=== PATIENT | female | born 1940 | race Caucasian/White ===

== ENCOUNTER 2017-10-20 17:49 | Observation (INO) | payer MEDICARE ==
[~2017-10-20 17:49] MED LIST: LEVO137T24 PO; PANT40TA25 PO; POTA15TA6 PO; VALS1TAB79 PO
[2017-10-20 18:19] LABS: EOSINOPHILS % (AUTO) 1.2 % (0.0-8.0); LYMPHOCYTES % (AUTO) 44.7 % (21.0-51.0); MEAN CORPUSCULAR HEMOGLOBIN 29.9 pg (27.0-33.0); MEAN CORPUSCULAR HGB CONC 34.4 g/dL (32.0-36.0); MEAN CORPUSCULAR VOLUME 87.1 fL (79-99); NEUTROPHILS % (AUTO) 45.1 % (40.0-77.0); PLATELET COUNT (AUTO) 226 K/uL (130-400); RED CELL DISTRIBUTION WIDTH 13.7 % (11.0-15.5); WHITE BLOOD COUNT (AUTO) 11.6 K/uL (4.8-10.8)
[2017-10-20 18:25] LABS: APPEARANCE,URINE Clear (CLEAR); BILIRUBIN,URINE Negative (NEGATIVE); COLOR,URINE Yellow (YELLOW); GLUCOSE, URINE (UA) Negative (NEGATIVE); KETONES,URINE Negative (NEGATIVE); LEUKOCYTE ESTERASE ,URINE Small (NEGATIVE); NITRATE,URINE Negative (NEGATIVE); OCCULT BLOOD,URINE Nonhemolyzed Trace (NEGATIVE); PH,URINE 7.5 (5.0-8.0); PROTEIN,URINE Negative (NEGATIVE); UROBILINOGEN,URINE 0.2 mg/dL (0.2-1.0)
[2017-10-20 18:30] LABS: CREATININE 1.4 mg/dL (0.5-1.5); POTASSIUM 4.1 mmol/L (3.5-5.1)
[2017-10-20 18:32] LABS: ALBUMIN 4.2 g/dL (3.5-5.0); BILIRUBIN,TOTAL 0.6 mg/dL (0.2-1.0); TOTAL PROTEIN, SERUM 7.5 g/dL (6.0-8.3)
[2017-10-20 18:38] LABS: BACTERIA,URINE Rare /HPF (None Seen); SQUAMOUS EPITHELIAL CELL,UR Rare /LPF (0-2)
[2017-10-20] MEDS ORDERED: ONDANSETRON HCL 4 MG/2 ML VIAL ONE (19:08)
[2017-10-20] MEDS ORDERED: MORPHINE SULFATE 4 MG/1ML SYG ONE (19:09)
[2017-10-20] MEDS ORDERED: TAMSULOSIN HCL 0.4 MG CAP.ER.24H ONE (19:24)
[2017-10-20] MEDS ORDERED: 1/2 NORMAL SALINE 1,000 ML IV SCH (21:45)
[2017-10-20] MEDS ORDERED: MORPHINE-NS 50 MG/50 ML 50 ML IV PRN (21:45)
[2017-10-20] MEDS ORDERED: NALOXONE HCL 0.4 MG/1 ML ML IVP PRN (21:45)
[2017-10-20] MEDS ORDERED: MORPHINE-NS 50 MG/50 ML 50 ML IV ONE (22:19)
[2017-10-20] MEDS ORDERED: MORPHINE SULFATE 2 MG/ML 1ML SYG ONE (23:26)
[2017-10-20] MEDS ORDERED: 1/2 NORMAL SALINE 1,000 ML IV ONE (23:54)
[2017-10-21] MEDS ORDERED: ONDANSETRON HCL 4 MG/2 ML VIAL ONE ×2 (05:07→12:07)
[2017-10-21 05:26] LABS: BASOPHILS % (AUTO) 0.6 % (0.0-5.0); EOSINOPHILS % (AUTO) 0.4 % (0.0-8.0); HEMATOCRIT 35.8 % (36-48); LYMPHOCYTES % (AUTO) 35.3 % (21.0-51.0); MEAN CORPUSCULAR HEMOGLOBIN 29.9 pg (27.0-33.0); MEAN CORPUSCULAR HGB CONC 34.5 g/dL (32.0-36.0); MEAN CORPUSCULAR VOLUME 86.8 fL (79-99); MONOCYTES % (AUTO) 7.5 % (3.0-13.0); NEUTROPHILS % (AUTO) 56.2 % (40.0-77.0); PLATELET COUNT (AUTO) 194 K/uL (130-400); RED BLOOD CELL COUNT(AUTO) 4.13 MIL/uL (4.00-5.50); RED CELL DISTRIBUTION WIDTH 13.7 % (11.0-15.5); WHITE BLOOD COUNT (AUTO) 9.6 K/uL (4.8-10.8)
[2017-10-21 05:30] LABS: CREATININE 1.4 mg/dL (0.5-1.5); POTASSIUM 3.6 mmol/L (3.5-5.1)
[2017-10-21] MEDS ORDERED: 1/2 NORMAL SALINE 1,000 ML IV SCH (08:30)
[2017-10-21 11:20] VITALS: BP 113/44
[2017-10-21] MEDS ORDERED: ONDANSETRON HCL 4 MG/2 ML VIAL IVP PRN ×2 (12:15→14:15)
[2017-10-21 13:59] VITALS: BP 117/56
[2017-10-21 16:00] VITALS: BP 127/53
== END 2017-10-21 17:30 | disposition home or self-care (01) ==
LOC: EDH 17:49 → EDHIP 21:10 → INTOOBSV 21:10 → 3DH 10-21 13:59
PROVIDERS: ADMIT Internal Medicine; ATTEND Internal Medicine
DX: N23 Unspecified renal colic (principal); I10 Essential (primary) hypertension; K57.90 Diverticulosis of intestine, part unspecified, without perforation or abscess without bleeding; J44.9 Chronic obstructive pulmonary disease, unspecified; E03.9 Hypothyroidism, unspecified; Z87.442 Personal history of urinary calculi; Z90.49 Acquired absence of other specified parts of digestive tract
CPT/HCPCS: 36415 ×2; 74176; 80048; 80053; 81001; 85025 ×2; 96361; 96374; 96376; 99285; G0378 ×20; J2270 ×2; J2405 ×4

== ENCOUNTER 2018-03-21 11:19 | Inpatient (IN) | payer MEDICARE ==
[~2018-03-21] VITALS: Ht 165.1 cm; Wt 88.7 kg
[2018-03-21] MEDS ORDERED: IOPAMIDOL-370 75 ML VIAL IV ONE (11:46)
[2018-03-21] MEDS ORDERED: DIATR MEGLU/DIATRIZOATE SODIUM 30 ML BOTTLE ONE ×2 (11:46→12:00)
[2018-03-21] MEDS ORDERED: METRONIDAZOLE 500MG/100ML BAG 100 ML ONE (11:50)
[2018-03-21] MEDS ORDERED: ZOSYN 3.375GM+NS 50ML 50 ML IV ONE ×2 (11:50→13:12)
[2018-03-21] MEDS ORDERED: 1/2 NORMAL SALINE 1,000 ML IV ONE (11:51)
[2018-03-21 12:21] LABS: BASOPHILS % (AUTO) 1.1 % (0.0-5.0); HEMATOCRIT 45.3 % (36-48); LYMPHOCYTES % (AUTO) 32.1 % (21.0-51.0); MEAN CORPUSCULAR HEMOGLOBIN 29.5 pg (27.0-33.0); MEAN CORPUSCULAR HGB CONC 33.8 g/dL (32.0-36.0); MEAN CORPUSCULAR VOLUME 87.4 fL (79-99); NEUTROPHILS % (AUTO) 58.8 % (40.0-77.0); NUCLEATED RED BLOOD CELLS 0.1 % (0.0-0.19); PLATELET COUNT (AUTO) 236 K/uL (130-400); RED BLOOD CELL COUNT(AUTO) 5.18 MIL/uL (4.00-5.50); RED CELL DISTRIBUTION WIDTH 13.4 % (11.0-15.5); WHITE BLOOD COUNT (AUTO) 11.7 K/uL (4.8-10.8)
[2018-03-21 12:31] LABS: CREATININE 1.1 mg/dL (0.5-1.5); POTASSIUM 4.6 mmol/L (3.5-5.1)
[2018-03-21 12:36] LABS: ALBUMIN 4.5 g/dL (3.5-5.0); BILIRUBIN,DIRECT 0.1 mg/dL (0.0-0.3); BILIRUBIN,TOTAL 0.6 mg/dL (0.2-1.0); TOTAL PROTEIN, SERUM 8.3 g/dL (6.0-8.3)
[2018-03-21] MEDS ORDERED: METRONIDAZOLE 500MG/100ML BAG 100 ML IVPB SCH (18:00)
[2018-03-21 18:49] VITALS: BP 139/56
[2018-03-21 19:52] VITALS: BP 151/89
[2018-03-21] MEDS ORDERED: ZOSYN 3.375GM+NS 50ML 50 ML IV SCH (20:00)
[2018-03-21] MEDS: 1/2 NORMAL SALINE 1,000 ML IV SCH (22:05)
[2018-03-21] MEDS ORDERED: ONDANSETRON ODT 4 MG TAB SL PRN (22:30)
[2018-03-21] MEDS ORDERED: ACETAMINOPHEN-CODEINE 300/30MG TAB ONE (22:30)
[2018-03-21] MEDS ORDERED: ACETAMINOPHEN-CODEINE 300/30MG TAB PO PRN (22:30)
[2018-03-21 23:28] VITALS: BP 123/55
[2018-03-22 03:24] VITALS: BP 124/49
[2018-03-22] MEDS ORDERED: METRONIDAZOLE 500MG/100ML BAG 100 ML ONE (05:07)
[2018-03-22 05:47] LABS: HEMATOCRIT 36.7 % (36-48); MEAN CORPUSCULAR HGB CONC 34.8 g/dL (32.0-36.0); MEAN CORPUSCULAR VOLUME 86.3 fL (79-99); PLATELET COUNT (AUTO) 192 K/uL (130-400); RED BLOOD CELL COUNT(AUTO) 4.25 MIL/uL (4.00-5.50); RED CELL DISTRIBUTION WIDTH 13.6 % (11.0-15.5); WHITE BLOOD COUNT (AUTO) 8.2 K/uL (4.8-10.8)
[2018-03-22] MEDS: ZOSYN 3.375GM+NS 50ML 50 ML IV SCH ×3 (06:02→22:32)
[2018-03-22 06:05] LABS: ALBUMIN 3.2 g/dL (3.5-5.0); BILIRUBIN,DIRECT 0.2 mg/dL (0.0-0.3); BILIRUBIN,TOTAL 0.9 mg/dL (0.2-1.0); CREATININE 1.1 mg/dL (0.5-1.5); POTASSIUM 3.7 mmol/L (3.5-5.1)
[2018-03-22] MEDS ORDERED: NAPR-1023 PO (08:13)
[2018-03-22 08:16] VITALS: BP 132/56
[2018-03-22] MEDS: ENOXAPARIN SODIUM 40 MG/0.4 ML SYRINGE SQ SCH (09:22)
[2018-03-22 11:36] VITALS: BP 135/71
[2018-03-22] MEDS: METRONIDAZOLE 500MG/100ML BAG 100 ML IVPB SCH ×2 (15:42→21:28)
[2018-03-22 16:00] VITALS: BP 140/54
[2018-03-22] MEDS: 1/2 NORMAL SALINE 1,000 ML IV SCH (20:13)
[2018-03-22 21:04] VITALS: BP 146/76
[2018-03-22] MEDS ORDERED: METRONIDAZOLE 500MG/100ML BAG 100 ML IVPB SCH (21:05)
[2018-03-23 00:24] VITALS: BP 134/81
[2018-03-23 04:37] VITALS: BP 131/51
[2018-03-23 05:18] LABS: HEMATOCRIT 35.8 % (36-48); MEAN CORPUSCULAR HEMOGLOBIN 30.8 pg (27.0-33.0); MEAN CORPUSCULAR HGB CONC 35.6 g/dL (32.0-36.0); MEAN CORPUSCULAR VOLUME 86.3 fL (79-99); NUCLEATED RED BLOOD CELLS 0.1 % (0.0-0.19); PLATELET COUNT (AUTO) 196 K/uL (130-400); RED BLOOD CELL COUNT(AUTO) 4.15 MIL/uL (4.00-5.50); RED CELL DISTRIBUTION WIDTH 13.4 % (11.0-15.5)
[2018-03-23] MEDS: METRONIDAZOLE 500MG/100ML BAG 100 ML IVPB SCH ×3 (05:23→21:52)
[2018-03-23] MEDS: 1/2 NORMAL SALINE 1,000 ML IV SCH ×2 (05:23→13:42)
[2018-03-23 05:34] LABS: CREATININE 1.1 mg/dL (0.5-1.5); POTASSIUM 3.4 mmol/L (3.5-5.1)
[2018-03-23] MEDS: ZOSYN 3.375GM+NS 50ML 50 ML IV SCH ×3 (06:14→23:42)
[2018-03-23 08:00] VITALS: BP 161/73
[2018-03-23] MEDS ORDERED: LIDOCAINE HCL-MPF 1% 2ML VIAL IVP PRN (08:15)
[2018-03-23] MEDS ORDERED: POTASSIUM CHLORIDE 10% ELIXIR 20 MEQ/15 ML UDCUP PO PRN (08:15)
[2018-03-23] MEDS ORDERED: POTASSIUM CHLORIDE 20MEQ/100ML 100 ML IV PRN (08:15)
[2018-03-23] MEDS: ENOXAPARIN SODIUM 40 MG/0.4 ML SYRINGE SQ SCH (08:17)
[2018-03-23] MEDS: POTASSIUM CHLORIDE 20 MEQ ERTAB PO PRN ×2 (08:27→10:47)
[2018-03-23 11:00] VITALS: BP 138/52
[2018-03-23 16:00] VITALS: BP 147/57
[2018-03-23 20:55] VITALS: BP 154/80
[2018-03-24 00:29] VITALS: BP 131/66
[2018-03-24 04:30] VITALS: BP 132/64
[2018-03-24 05:21] LABS: HEMATOCRIT 36.3 % (36-48); MEAN CORPUSCULAR HEMOGLOBIN 29.9 pg (27.0-33.0); MEAN CORPUSCULAR HGB CONC 34.6 g/dL (32.0-36.0); MEAN CORPUSCULAR VOLUME 86.5 fL (79-99); PLATELET COUNT (AUTO) 187 K/uL (130-400); RED BLOOD CELL COUNT(AUTO) 4.19 MIL/uL (4.00-5.50); WHITE BLOOD COUNT (AUTO) 7.4 K/uL (4.8-10.8)
[2018-03-24 05:33] LABS: CREATININE 1.1 mg/dL (0.5-1.5); POTASSIUM 3.7 mmol/L (3.5-5.1)
[2018-03-24] MEDS: 1/2 NORMAL SALINE 1,000 ML IV SCH (05:54)
[2018-03-24] MEDS: METRONIDAZOLE 500MG/100ML BAG 100 ML IVPB SCH (05:54)
[2018-03-24 07:00] VITALS: BP 140/63
[2018-03-24] MEDS: ZOSYN 3.375GM+NS 50ML 50 ML IV SCH (10:11)
[2018-03-24] MEDS: ENOXAPARIN SODIUM 40 MG/0.4 ML SYRINGE SQ SCH (10:14)
[2018-03-24 11:00] VITALS: BP 147/105
[2018-03-24 15:00] VITALS: BP 148/82
[2018-03-24 16:00] VITALS: BP 166/68
== END 2018-03-24 15:25 | disposition home or self-care (01) | DRG 392 ==
LOC: EDH 11:19 → OBSVTOIN 11:20 → EDHIP 11:20 → 3DH 18:30
PROVIDERS: ADMIT Internal Medicine; ATTEND Internal Medicine
DX: K57.32 Diverticulitis of large intestine without perforation or abscess without bleeding (principal); N20.1 Calculus of ureter; E03.9 Hypothyroidism, unspecified; I12.9 Hypertensive chronic kidney disease with stage 1 through stage 4 chronic kidney disease, or unspecified chronic kidney disease; J44.9 Chronic obstructive pulmonary disease, unspecified; K21.9 Gastro-esophageal reflux disease without esophagitis; N18.9 Chronic kidney disease, unspecified; Z90.710 Acquired absence of both cervix and uterus; Z87.442 Personal history of urinary calculi; Z90.49 Acquired absence of other specified parts of digestive tract
CPT/HCPCS: 36415; 74178; 80048; 80053; 80076; 82150; 82248; 85025; 85027; J1650; J2543; J3490; Q9963; Q9967

== ENCOUNTER 2019-05-12 12:17 | Observation (INO) | payer MEDICARE ==
[~2019-05-12] VITALS: Ht 165.1 cm; Wt 86.8 kg
[~2019-05-12 12:17] MED LIST changes: +NAPR-1023 PO
[2019-05-12 12:57] LABS: BASOPHILS % (AUTO) 0.5 % (0.0-5.0); EOSINOPHILS % (AUTO) 0.8 % (0.0-8.0); HEMATOCRIT 41.4 % (36-48); LYMPHOCYTES % (AUTO) 33.7 % (21.0-51.0); MEAN CORPUSCULAR HGB CONC 33.4 g/dL (32.0-36.0); MEAN CORPUSCULAR VOLUME 89.9 fL (79-99); MONOCYTES % (AUTO) 8.4 % (3.0-13.0); NEUTROPHILS % (AUTO) 56.6 % (40.0-77.0); NUCLEATED RED BLOOD CELLS 0.1 % (0.0-0.19); PLATELET COUNT (AUTO) 203 K/uL (130-400); RED BLOOD CELL COUNT(AUTO) 4.61 MIL/uL (4.00-5.50); RED CELL DISTRIBUTION WIDTH 13.8 % (11.0-15.5); WHITE BLOOD COUNT (AUTO) 10.8 K/uL (4.8-10.8)
[2019-05-12 13:09] LABS: INR 0.92 (0.85-1.15); PARTIAL THROMBOPLASTIN TIME 31.7 SEC (26.3-35.5); PROTHROMBIN TIME 9.7 SEC (9.6-11.6)
[2019-05-12 13:10] LABS: APPEARANCE,URINE Clear (CLEAR); BILIRUBIN,URINE Negative (NEGATIVE); COLOR,URINE Yellow (YELLOW); GLUCOSE, URINE (UA) Negative (NEGATIVE); KETONES,URINE Negative (NEGATIVE); LEUKOCYTE ESTERASE ,URINE Small (NEGATIVE); NITRATE,URINE Negative (NEGATIVE); OCCULT BLOOD,URINE Small (NEGATIVE); PROTEIN,URINE Negative (NEGATIVE); UROBILINOGEN,URINE 0.2 mg/dL (0.2-1.0)
[2019-05-12 13:15] LABS: CREATININE 0.9 mg/dL (0.5-1.5); POTASSIUM 4.4 mmol/L (3.5-5.1)
[2019-05-12 13:16] LABS: BACTERIA,URINE Rare /HPF (None Seen); RBC,URINE 0-1 /HPF (0-1); WBC,URINE 0-1 /HPF (0-1)
[2019-05-12 13:17] LABS: SQUAMOUS EPITHELIAL CELL,UR Rare /HPF (0-2)
[2019-05-12 13:20] LABS: BILIRUBIN,DIRECT 0.1 mg/dL (0.0-0.3); BILIRUBIN,TOTAL 0.8 mg/dL (0.2-1.0); TOTAL PROTEIN, SERUM 7.9 g/dL (6.0-8.3)
[2019-05-12] MEDS ORDERED: IOHEXOL 350 MG/ML 100ML INFUS..BTL IV ONE (13:36)
[2019-05-12] MEDS ORDERED: CEFTRIAXONE SODIUM 1 GM ONE (13:38)
[2019-05-12] MEDS ORDERED: ONDANSETRON HCL 4 MG/2 ML VIAL ONE (13:38)
[2019-05-12] MEDS ORDERED: MORPHINE SULFATE 4 MG/1ML SYG ONE (13:39)
[2019-05-12] MEDS ORDERED: SODIUM CHLORIDE 0.9% 100 ML IV ONE ×2 (13:40→13:41)
[2019-05-12] MEDS ORDERED: SODIUM CHLORIDE 0.9% 1000ML 1,000 ML IV ONE (13:40)
[2019-05-12] MEDS ORDERED: MORPHINE SULFATE 4 MG/1ML SYG IVP PRN (15:30)
[2019-05-12 16:05] VITALS: BP 114/43
[2019-05-12] MEDS ORDERED: TELM80TA10 PO (17:12)
[2019-05-12] MEDS ORDERED: VIT1CAPS47 PO (17:12)
[2019-05-12] MEDS: METRONIDAZOLE 500MG/100ML BAG 100 ML IVPB SCH (17:15)
[2019-05-12 19:10] VITALS: BP 125/67
[2019-05-12] MEDS: MORPHINE SULFATE 4 MG/1ML SYG IVP PRN (19:48)
[2019-05-13 00:06] VITALS: BP 136/54
[2019-05-13] MEDS: METRONIDAZOLE 500MG/100ML BAG 100 ML IVPB SCH ×3 (00:20→17:31)
[2019-05-13] MEDS: MORPHINE SULFATE 4 MG/1ML SYG IVP PRN (01:34)
[2019-05-13 04:16] VITALS: BP 108/56
[2019-05-13 08:00] VITALS: BP 120/45
[2019-05-13] MEDS ORDERED: CEFTRIAXONE SODIUM 1 GM IVP SCH ×2 (09:00)
[2019-05-13 11:00] VITALS: BP 116/51
[2019-05-13 16:00] VITALS: BP 121/43
[2019-05-13 19:10] VITALS: BP 59/63
[2019-05-14 00:10] VITALS: BP 136/68
[2019-05-14] MEDS: METRONIDAZOLE 500MG/100ML BAG 100 ML IVPB SCH (02:07)
[2019-05-14 04:02] VITALS: BP 126/65
[2019-05-14 05:18] LABS: HEMATOCRIT 36.7 % (36-48); MEAN CORPUSCULAR HEMOGLOBIN 30.4 pg (27.0-33.0); MEAN CORPUSCULAR HGB CONC 33.9 g/dL (32.0-36.0); MEAN CORPUSCULAR VOLUME 89.6 fL (79-99); PLATELET COUNT (AUTO) 177 K/uL (130-400); RED CELL DISTRIBUTION WIDTH 13.5 % (11.0-15.5); WHITE BLOOD COUNT (AUTO) 8.3 K/uL (4.8-10.8)
[2019-05-14 05:31] LABS: POTASSIUM 3.4 mmol/L (3.5-5.1)
[2019-05-14 08:00] VITALS: BP 151/65
== END 2019-05-14 09:15 | disposition home or self-care (01) ==
LOC: EDH 12:17 → EDHIP 15:05 → 3AH 16:08
PROVIDERS: ADMIT Internal Medicine; ATTEND Internal Medicine
DX: K57.92 Diverticulitis of intestine, part unspecified, without perforation or abscess without bleeding (principal); I10 Essential (primary) hypertension; J44.9 Chronic obstructive pulmonary disease, unspecified; E03.9 Hypothyroidism, unspecified; K21.9 Gastro-esophageal reflux disease without esophagitis; Z90.710 Acquired absence of both cervix and uterus; Z90.49 Acquired absence of other specified parts of digestive tract; Z87.442 Personal history of urinary calculi
CPT/HCPCS: 36415 ×2; 74177; 80048 ×2; 80076; 81001; 82550; 83690; 84484; 85025; 85027; 85610; 85730; 93005; 96365; 96366 ×2; 96375; 96376; 99284; G0378 ×42; J0696; J2270 ×3; J2405; J3490 ×5; J7030; Q9967

== ENCOUNTER 2021-02-26 10:12 | Inpatient (IN) | payer MEDICARE ==
[~2021-02-26] VITALS: Ht 165.1 cm; Wt 83.9 kg
[~2021-02-26 10:12] MED LIST changes: -LEVO137T24 PO; +METO50TA18 PO; -NAPR-1023 PO; -PANT40TA25 PO; +PANT40TA54 PO; +RIVA20TA PO; -VALS1TAB79 PO; +VIT1CAPS47 PO
[2021-02-26 11:00] LABS: BASOPHILS % (AUTO) 0.4 % (0.0-5.0); EOSINOPHILS % (AUTO) 1.8 % (0.0-8.0); HEMATOCRIT 40.2 % (36-48); MEAN CORPUSCULAR HEMOGLOBIN 29.5 pg (27.0-33.0); MEAN CORPUSCULAR HGB CONC 32.3 g/dL (32.0-36.0); MEAN CORPUSCULAR VOLUME 91.2 fL (79-99); MONOCYTES % (AUTO) 10.4 % (3.0-13.0); PLATELET COUNT (AUTO) 203 K/uL (130-400); RED BLOOD CELL COUNT(AUTO) 4.41 MIL/uL (4.00-5.50); WHITE BLOOD COUNT (AUTO) 10.4 K/uL (4.8-10.8)
[2021-02-26 11:22] LABS: ALBUMIN 3.4 g/dL (3.5-5.0); BILIRUBIN,DIRECT 0.1 mg/dL (0.0-0.3); BILIRUBIN,TOTAL 0.5 mg/dL (0.2-1.0); POTASSIUM 3.7 mmol/L (3.5-5.1); TOTAL PROTEIN, SERUM 6.8 g/dL (6.0-8.3)
[2021-02-26] MEDS ORDERED: METHYLPREDNISOLONE SOD SUCC 40MG/ML 1ML ONE (11:24)
[2021-02-26] MEDS ORDERED: MEROPENEM 500 MG VIAL ONE ×2 (11:24→22:32)
[2021-02-26] MEDS ORDERED: SODIUM CHLORIDE 0.9% 100 ML IV ONE ×2 (11:26→22:15)
[2021-02-26] MEDS ORDERED: POTASSIUM CHLORIDE 10% ELIXIR 20 MEQ/15 ML UDCUP PO PRN (13:30)
[2021-02-26] MEDS ORDERED: LIDOCAINE HCL-MPF 1% 2ML VIAL IJ PRN (13:30)
[2021-02-26] MEDS: DEXTROSE 5 %-0.45 % NACL 1,000 ML IV SCH (13:30)
[2021-02-26] MEDS ORDERED: ALBUTEROL SULFATE 0.083% 2.5 MG/3 ML INH IH PRN (13:30)
[2021-02-26] MEDS ORDERED: POTASSIUM CHLORIDE 20MEQ/100ML 100 ML IV PRN (13:30)
[2021-02-26] MEDS ORDERED: POTASSIUM CHLORIDE 20 MEQ ERTAB PO PRN (13:30)
[2021-02-26] MEDS ORDERED: DEXTROSE 5 %-0.45 % NACL 1,000 ML IV ONE (14:05)
[2021-02-26] MEDS: IPRATROPIUM/ALBUTEROL SULFATE 3 ML SOLUTION IH SCH ×2 (14:37→17:33)
[2021-02-26] MEDS: ACETYLCYSTEINE 20% 200MG/ML 4ML VIAL IH SCH (14:37)
[2021-02-26] MEDS: MEROPENEM 500 MG VIAL IVP SCH (15:00)
[2021-02-26] MEDS ORDERED: MEROPENEM 1 GM VIAL ONE (22:14)
[2021-02-26] MEDS ORDERED: METHYLPREDNISOLONE SOD SUCC 125MG/2ML VIAL ONE (22:14)
[2021-02-27] MEDS: IPRATROPIUM/ALBUTEROL SULFATE 3 ML SOLUTION IH SCH ×5 (01:13→22:52)
[2021-02-27] MEDS: ACETYLCYSTEINE 20% 200MG/ML 4ML VIAL IH SCH ×3 (01:13→22:52)
[2021-02-27] MEDS: PHARMACY COMMUNICATION MISC SCH ×9 (01:30→17:30)
[2021-02-27] MEDS: METHYLPREDNISOLONE SOD SUCC 125MG/2ML VIAL IVP SCH ×2 (01:30→15:23)
[2021-02-27 02:00] VITALS: BP 152/53
[2021-02-27] MEDS ORDERED: LEVO125 PO (02:35)
[2021-02-27] MEDS: MEROPENEM 500 MG VIAL IVP SCH ×2 (03:00→15:24)
[2021-02-27 04:00] VITALS: BP 119/53
[2021-02-27 05:34] LABS: HEMATOCRIT 34.8 % (36-48); MEAN CORPUSCULAR HEMOGLOBIN 30.2 pg (27.0-33.0); MEAN CORPUSCULAR VOLUME 91.3 fL (79-99); RED BLOOD CELL COUNT(AUTO) 3.81 MIL/uL (4.00-5.50); RED CELL DISTRIBUTION WIDTH 13.9 % (11.0-15.5); WHITE BLOOD COUNT (AUTO) 9.6 K/uL (4.8-10.8)
[2021-02-27 06:01] LABS: BILIRUBIN,DIRECT 0.1 mg/dL (0.0-0.3); BILIRUBIN,TOTAL 0.4 mg/dL (0.2-1.0); POTASSIUM 3.5 mmol/L (3.5-5.1); TOTAL PROTEIN, SERUM 6.1 g/dL (6.0-8.3)
[2021-02-27 08:00] VITALS: BP 129/54
[2021-02-27] MEDS: DEXTROSE 5 %-0.45 % NACL 1,000 ML IV SCH (09:30)
[2021-02-27] MEDS: ENOXAPARIN SODIUM 40 MG/0.4 ML SYRINGE SQ SCH (09:53)
[2021-02-27] MEDS: GUAIFENESIN-CODEINE 5 ML SYRUP PO PRN (09:53)
[2021-02-27 12:00] VITALS: BP 145/51
[2021-02-27 16:00] VITALS: BP 135/53
[2021-02-27 20:00] VITALS: BP 137/53
[2021-02-27] MEDS: POTASSIUM CITRATE 15 MEQ PO SCH (21:00)
[2021-02-27] MEDS: METOPROLOL TARTRATE 50 MG TAB PO SCH (21:02)
[2021-02-28] VITALS (8 sets, daily range): BP systolic 106–183; BP diastolic 44–84
[2021-02-28] MEDS: METHYLPREDNISOLONE SOD SUCC 125MG/2ML VIAL IVP SCH ×2 (01:56→13:15)
[2021-02-28] MEDS: MEROPENEM 500 MG VIAL IVP SCH ×2 (03:23→15:25)
[2021-02-28 04:33] LABS: HEMATOCRIT 34.8 % (36-48); MEAN CORPUSCULAR HEMOGLOBIN 28.9 pg (27.0-33.0); MEAN CORPUSCULAR HGB CONC 32.2 g/dL (32.0-36.0); MEAN CORPUSCULAR VOLUME 89.9 fL (79-99); RED BLOOD CELL COUNT(AUTO) 3.87 MIL/uL (4.00-5.50); RED CELL DISTRIBUTION WIDTH 14.4 % (11.0-15.5); WHITE BLOOD COUNT (AUTO) 14.2 K/uL (4.8-10.8)
[2021-02-28 04:45] LABS: ALBUMIN 2.8 g/dL (3.5-5.0); BILIRUBIN,TOTAL 0.3 mg/dL (0.2-1.0); POTASSIUM 3.8 mmol/L (3.5-5.1); TOTAL PROTEIN, SERUM 5.9 g/dL (6.0-8.3)
[2021-02-28] MEDS: ACETYLCYSTEINE 20% 200MG/ML 4ML VIAL IH SCH (06:09)
[2021-02-28] MEDS: IPRATROPIUM/ALBUTEROL SULFATE 3 ML SOLUTION IH SCH ×4 (06:10→23:27)
[2021-02-28] MEDS: DEXTROSE 5 %-0.45 % NACL 1,000 ML IV SCH ×2 (06:45→15:00)
[2021-02-28] MEDS: VITAMIN B COMPLEX 1 CAPSULE PO SCH (08:34)
[2021-02-28] MEDS: PANTOPRAZOLE SODIUM 40 MG TABLET.DR PO SCH (08:34)
[2021-02-28] MEDS: METOPROLOL TARTRATE 50 MG TAB PO SCH ×2 (08:34→22:21)
[2021-02-28] MEDS: LEVOTHYROXINE 125 MCG TABLET PO SCH (08:34)
[2021-02-28] MEDS: RIVAROXABAN 20 MG TABLET PO SCH (08:35)
[2021-02-28] MEDS: ENOXAPARIN SODIUM 40 MG/0.4 ML SYRINGE SQ SCH (08:35)
[2021-02-28] MEDS: POTASSIUM CITRATE 15 MEQ PO SCH ×2 (08:35→21:00)
[2021-02-28] MEDS: PHARMACY COMMUNICATION MISC SCH ×2 (21:30→23:30)
[2021-02-28] MEDS: ACETYLCYSTEINE 20% 200MG/ML 4ML VIAL PO SCH (22:21)
[2021-03-01] MEDS: PHARMACY COMMUNICATION MISC SCH ×11 (01:30→21:30)
[2021-03-01] MEDS: METHYLPREDNISOLONE SOD SUCC 125MG/2ML VIAL IVP SCH ×2 (02:17→14:41)
[2021-03-01] MEDS: MEROPENEM 500 MG VIAL IVP SCH ×2 (02:17→15:10)
[2021-03-01] MEDS: DEXTROSE 5 %-0.45 % NACL 1,000 ML IV SCH (03:48)
[2021-03-01] MEDS: METOPROLOL TARTRATE 50 MG TAB PO SCH ×2 (03:54→20:13)
[2021-03-01 04:30] VITALS: BP 174/62
[2021-03-01] MEDS: ACETYLCYSTEINE 20% 200MG/ML 4ML VIAL PO SCH (06:00)
[2021-03-01] MEDS: IPRATROPIUM/ALBUTEROL SULFATE 3 ML SOLUTION IH SCH ×4 (06:42→23:19)
[2021-03-01] MEDS ORDERED: CLONIDINE HCL 0.1 MG TABLET PO SCH (07:43)
[2021-03-01] MEDS ORDERED: ACETYLCYSTEINE 20% 200MG/ML 4ML VIAL ONE (08:31)
[2021-03-01] MEDS: VITAMIN B COMPLEX 1 CAPSULE PO SCH (08:50)
[2021-03-01] MEDS: RIVAROXABAN 20 MG TABLET PO SCH (08:50)
[2021-03-01] MEDS: LEVOTHYROXINE 125 MCG TABLET PO SCH (08:51)
[2021-03-01] MEDS: PANTOPRAZOLE SODIUM 40 MG TABLET.DR PO SCH (08:51)
[2021-03-01] MEDS: POTASSIUM CITRATE 15 MEQ PO SCH ×2 (08:51→20:19)
[2021-03-01 10:34] VITALS: BP 155/67
[2021-03-01 12:13] VITALS: BP 98/50
[2021-03-01 12:19] LABS: BASOPHILS % (AUTO) 0.2 % (0.0-5.0); EOSINOPHILS % (AUTO) 0.1 % (0.0-8.0); HEMATOCRIT 40.2 % (36-48); LYMPHOCYTES % (AUTO) 16.6 % (21.0-51.0); MEAN CORPUSCULAR HEMOGLOBIN 29.1 pg (27.0-33.0); MEAN CORPUSCULAR HGB CONC 32.1 g/dL (32.0-36.0); MEAN CORPUSCULAR VOLUME 90.7 fL (79-99); MONOCYTES % (AUTO) 4.2 % (3.0-13.0); NEUTROPHILS % (AUTO) 77.3 % (40.0-77.0); PLATELET COUNT (AUTO) 204 K/uL (130-400); RED BLOOD CELL COUNT(AUTO) 4.43 MIL/uL (4.00-5.50); RED CELL DISTRIBUTION WIDTH 14.2 % (11.0-15.5); WHITE BLOOD COUNT (AUTO) 14.8 K/uL (4.8-10.8)
[2021-03-01 12:29] LABS: POTASSIUM 3.5 mmol/L (3.5-5.1)
[2021-03-01] MEDS: ACETAMINOPHEN-CODEINE 300/30MG TAB PO PRN ×2 (14:41→23:39)
[2021-03-01 17:41] VITALS: BP 180/65
[2021-03-01] MEDS ORDERED: BACLOFEN 10 MG TABLET ONE (19:10)
[2021-03-01 20:00] VITALS: BP 147/62
[2021-03-01] MEDS: BACLOFEN 10 MG TABLET PO SCH (20:13)
[2021-03-01] MEDS: GUAIFENESIN-CODEINE 5 ML SYRUP PO PRN (20:14)
[2021-03-02] VITALS (8 sets, daily range): BP systolic 119–194; BP diastolic 59–88
[2021-03-02] MEDS: METHYLPREDNISOLONE SOD SUCC 125MG/2ML VIAL IVP SCH ×2 (01:56→13:30)
[2021-03-02] MEDS: MEROPENEM 500 MG VIAL IVP SCH ×2 (03:54→16:13)
[2021-03-02] MEDS: GUAIFENESIN-CODEINE 5 ML SYRUP PO PRN ×4 (03:57→21:39)
[2021-03-02] MEDS: DEXTROSE 5 %-0.45 % NACL 1,000 ML IV SCH (03:57)
[2021-03-02 05:31] LABS: CREATININE 1.1 mg/dL (0.5-1.5); MAGNESIUM 1.8 mg/dL (1.80-2.40); POTASSIUM 4.1 mmol/L (3.5-5.1)
[2021-03-02] MEDS: IPRATROPIUM/ALBUTEROL SULFATE 3 ML SOLUTION IH SCH ×4 (06:19→23:40)
[2021-03-02] MEDS: PANTOPRAZOLE SODIUM 40 MG TABLET.DR PO SCH (07:48)
[2021-03-02] MEDS: LEVOTHYROXINE 125 MCG TABLET PO SCH (07:48)
[2021-03-02] MEDS: METOPROLOL TARTRATE 50 MG TAB PO SCH ×2 (08:09→21:40)
[2021-03-02] MEDS ORDERED: AMLODIPINE BESYLATE 5 MG TAB PO SCH (08:15)
[2021-03-02] MEDS ORDERED: MAGNESIUM 2GM PREMIX 50ML 50 ML IV PRN (08:15)
[2021-03-02] MEDS: VITAMIN B COMPLEX 1 CAPSULE PO SCH (08:53)
[2021-03-02] MEDS: BACLOFEN 10 MG TABLET PO SCH ×2 (08:54→21:41)
[2021-03-02] MEDS: RIVAROXABAN 20 MG TABLET PO SCH (08:54)
[2021-03-02] MEDS: POTASSIUM CITRATE 15 MEQ PO SCH ×2 (09:00→21:00)
[2021-03-02] MEDS ORDERED: ACETAMINOPHEN-CODEINE 300/30MG TAB ONE (09:07)
[2021-03-02] MEDS: FLUCONAZOLE 100 MG TAB PO SCH (10:43)
[2021-03-02] MEDS: ACETAMINOPHEN-CODEINE 300/30MG TAB PO PRN ×2 (16:15→21:40)
[2021-03-03] VITALS (7 sets, daily range): BP systolic 149–185; BP diastolic 53–76
[2021-03-03] MEDS: METHYLPREDNISOLONE SOD SUCC 125MG/2ML VIAL IVP SCH (01:34)
[2021-03-03] MEDS: MEROPENEM 500 MG VIAL IVP SCH ×2 (03:49→14:38)
[2021-03-03 05:24] LABS: BASOPHILS % (AUTO) 0.4 % (0.0-5.0); EOSINOPHILS % (AUTO) 0.4 % (0.0-8.0); HEMATOCRIT 40.1 % (36-48); LYMPHOCYTES % (AUTO) 18.5 % (21.0-51.0); MEAN CORPUSCULAR HEMOGLOBIN 28.5 pg (27.0-33.0); MEAN CORPUSCULAR HGB CONC 32.2 g/dL (32.0-36.0); MEAN CORPUSCULAR VOLUME 88.7 fL (79-99); MONOCYTES % (AUTO) 3.1 % (3.0-13.0); NEUTROPHILS % (AUTO) 72.9 % (40.0-77.0); PLATELET COUNT (AUTO) 234 K/uL (130-400); RED BLOOD CELL COUNT(AUTO) 4.52 MIL/uL (4.00-5.50); RED CELL DISTRIBUTION WIDTH 13.8 % (11.0-15.5); WHITE BLOOD COUNT (AUTO) 14.4 K/uL (4.8-10.8)
[2021-03-03] MEDS: GUAIFENESIN-CODEINE 5 ML SYRUP PO PRN ×3 (05:24→21:03)
[2021-03-03] MEDS: ACETAMINOPHEN-CODEINE 300/30MG TAB PO PRN ×2 (05:25→13:29)
[2021-03-03 05:39] LABS: CREATININE 1.2 mg/dL (0.5-1.5); MAGNESIUM 2.1 mg/dL (1.80-2.40); POTASSIUM 4.2 mmol/L (3.5-5.1)
[2021-03-03] MEDS: IPRATROPIUM/ALBUTEROL SULFATE 3 ML SOLUTION IH SCH ×3 (06:24→18:53)
[2021-03-03] MEDS: PANTOPRAZOLE SODIUM 40 MG TABLET.DR PO SCH (06:51)
[2021-03-03] MEDS: LEVOTHYROXINE 125 MCG TABLET PO SCH (06:51)
[2021-03-03] MEDS: POTASSIUM CITRATE 15 MEQ PO SCH ×2 (09:00→21:00)
[2021-03-03] MEDS: FLUCONAZOLE 100 MG TAB PO SCH (09:41)
[2021-03-03] MEDS: VITAMIN B COMPLEX 1 CAPSULE PO SCH (09:41)
[2021-03-03] MEDS: BACLOFEN 10 MG TABLET PO SCH ×2 (09:42→21:02)
[2021-03-03] MEDS: PREDNISONE 20 MG TABLET PO SCH (09:42)
[2021-03-03] MEDS: METOPROLOL TARTRATE 50 MG TAB PO SCH ×2 (09:42→21:02)
[2021-03-03] MEDS: AMLODIPINE BESYLATE 5 MG TAB PO SCH ×2 (09:42→21:02)
[2021-03-03] MEDS: RIVAROXABAN 20 MG TABLET PO SCH (09:43)
[2021-03-03] MEDS ORDERED: ALPRAZOLAM 0.5 MG TABLET PO SCH (21:00)
[2021-03-04] MEDS: IPRATROPIUM/ALBUTEROL SULFATE 3 ML SOLUTION IH SCH ×4 (00:23→17:14)
[2021-03-04] MEDS: MEROPENEM 500 MG VIAL IVP SCH ×2 (03:41→15:48)
[2021-03-04 04:00] VITALS: BP 163/63
[2021-03-04] MEDS: GUAIFENESIN-CODEINE 5 ML SYRUP PO PRN (06:42)
[2021-03-04] MEDS: LEVOTHYROXINE 125 MCG TABLET PO SCH (06:42)
[2021-03-04] MEDS: PANTOPRAZOLE SODIUM 40 MG TABLET.DR PO SCH (06:42)
[2021-03-04] MEDS: POTASSIUM CITRATE 15 MEQ PO SCH (08:25)
[2021-03-04] MEDS: BACLOFEN 10 MG TABLET PO SCH (09:10)
[2021-03-04] MEDS: VITAMIN B COMPLEX 1 CAPSULE PO SCH (09:10)
[2021-03-04] MEDS: RIVAROXABAN 20 MG TABLET PO SCH (09:10)
[2021-03-04] MEDS: METOPROLOL TARTRATE 50 MG TAB PO SCH (09:10)
[2021-03-04] MEDS: AMLODIPINE BESYLATE 5 MG TAB PO SCH (09:10)
[2021-03-04] MEDS: FLUCONAZOLE 100 MG TAB PO SCH (09:10)
[2021-03-04] MEDS: PREDNISONE 20 MG TABLET PO SCH (09:10)
[2021-03-04 12:04] VITALS: BP 141/61
[2021-03-04 17:05] VITALS: BP 162/68
[2021-03-04 17:07] VITALS: BP 162/68
== END 2021-03-04 17:30 | DRG 202 ==
LOC: EDH 10:12 → OBSVTOIN 10:13 → EDHIP 10:13 → 3DH 02-27 01:06
PROVIDERS: ADMIT Internal Medicine; ATTEND Internal Medicine
DX: J20.9 Acute bronchitis, unspecified (principal); J44.1 Chronic obstructive pulmonary disease with (acute) exacerbation; J44.0 Chronic obstructive pulmonary disease with (acute) lower respiratory infection; I48.91 Unspecified atrial fibrillation; J98.4 Other disorders of lung; N18.9 Chronic kidney disease, unspecified; I12.9 Hypertensive chronic kidney disease with stage 1 through stage 4 chronic kidney disease, or unspecified chronic kidney disease; E03.9 Hypothyroidism, unspecified; F41.1 Generalized anxiety disorder; F32.9 Major depressive disorder, single episode, unspecified; Z79.01 Long term (current) use of anticoagulants
CPT/HCPCS: 36415; 71046; 73120; 80048; 80053; 80076; 83735; 85025; 85027; 87071; 87205; 94640; 94664; 97039; G0378; J1650; J2185; J2920; J2930; J3475; J7042; J7608

== ENCOUNTER 2021-06-19 12:09 | Emergency (ER) | payer MEDICARE ==
[~2021-06-19] VITALS: Ht 165.1 cm; Wt 76.2 kg
[~2021-06-19 12:09] MED LIST changes: +LEVO125 PO
[2021-06-19 12:40] VITALS: BP 141/87
[2021-06-19] MEDS ORDERED: ONDANSETRON 4MG INJ ONE ×2 (12:46→18:45)
[2021-06-19] MEDS ORDERED: ONDANSETRON 4MG INJ IVP STA (12:51)
[2021-06-19 12:55] LABS: BASOPHILS % (AUTO) 0.5 % (0.0-5.0); EOSINOPHILS % (AUTO) 0.7 % (0.0-8.0); HEMATOCRIT 45.2 % (36-48); LYMPHOCYTES % (AUTO) 42.6 % (21.0-51.0); MEAN CORPUSCULAR HEMOGLOBIN 29.4 pg (27.0-33.0); MEAN CORPUSCULAR HGB CONC 34.1 g/dL (32.0-36.0); MEAN CORPUSCULAR VOLUME 86.3 fL (79-99); MONOCYTES % (AUTO) 8.2 % (3.0-13.0); NEUTROPHILS % (AUTO) 47.7 % (40.0-77.0); PLATELET COUNT (AUTO) 285 K/uL (130-400); RED BLOOD CELL COUNT(AUTO) 5.24 MIL/uL (4.00-5.50); RED CELL DISTRIBUTION WIDTH 12.3 % (11.0-15.5); WHITE BLOOD COUNT (AUTO) 14.9 K/uL (4.8-10.8)
[2021-06-19 13:08] LABS: CREATININE 1.2 mg/dL (0.5-1.5); POTASSIUM 3.1 mmol/L (3.5-5.1)
[2021-06-19 13:13] LABS: ALBUMIN 4.3 g/dL (3.5-5.0); BILIRUBIN,TOTAL 0.6 mg/dL (0.2-1.0)
[2021-06-19 14:44] VITALS: BP 122/42
[2021-06-19] MEDS ORDERED: ZOSYN 3.375GM+NS 50ML 3.38 GM in 0.9%NACL 50ML 50 ML IV SCH (15:30)
[2021-06-19 15:43] LABS: APPEARANCE,URINE Clear (CLEAR); BILIRUBIN,URINE Negative (NEGATIVE); COLOR,URINE Yellow (YELLOW); GLUCOSE, URINE (UA) Negative (NEGATIVE); KETONES,URINE 15 mg/dL (NEGATIVE); LEUKOCYTE ESTERASE ,URINE Negative (NEGATIVE); NITRATE,URINE Negative (NEGATIVE); OCCULT BLOOD,URINE Trace (NEGATIVE); PH,URINE 5.5 (5.0-8.0); PROTEIN,URINE Negative (NEGATIVE); UROBILINOGEN,URINE 0.2 mg/dL (0.2-1.0)
[2021-06-19] MEDS ORDERED: HYDR12.54 PO (15:47)
[2021-06-19] MEDS ORDERED: AMLO-257 PO (15:47)
[2021-06-19] MEDS ORDERED: ZOSYN 3.375GM+NS 50ML 50 ML ONE (15:56)
[2021-06-19] MEDS ORDERED: 0.9%NACL 50ML 50 ML IV ONE ×2 (15:57→16:00)
[2021-06-19] MEDS ORDERED: IOHEXOL-350 75 ML VIAL IV ONE (15:58)
[2021-06-19] MEDS ORDERED: ZOSYN 3.375GM +NS 50ML IV SCH (16:00)
[2021-06-19 16:15] LABS: BACTERIA,URINE Rare /HPF (None Seen); MUCUS,URINE Rare LPF (None Seen); SQUAMOUS EPITHELIAL CELL,UR Few /HPF (0-2); WBC,URINE 0-1 /HPF (0-1)
[2021-06-19] MEDS ORDERED: KETOROLAC 15MG/ML VIAL (15MG/ML) ONE (18:45)
[2021-06-19] MEDS ORDERED: ACET1TAB25 PO (18:53)
[2021-06-19] MEDS ORDERED: KETOROLAC 15MG/ML VIAL (15MG/ML) IV ONE (19:00)
== END 2021-06-19 19:09 | disposition home or self-care (01) ==
LOC: EDH 12:09
DX: K57.30 Diverticulosis of large intestine without perforation or abscess without bleeding (principal); I10 Essential (primary) hypertension; Z79.1 Long term (current) use of non-steroidal anti-inflammatories (NSAID); Z79.899 Other long term (current) drug therapy; Z90.49 Acquired absence of other specified parts of digestive tract
CPT/HCPCS: 36415; 74177; 80053; 81001; 82150; 83690; 85025; 93005; 96365; 96366; 96375; 96376; 99285; J1885; J2405 ×2; J2543; Q9967

== ENCOUNTER 2021-08-18 21:36 | Emergency (ER) | payer MEDICARE ==
[~2021-08-18] VITALS: Ht 165.1 cm; Wt 76.7 kg
[~2021-08-18 21:36] MED LIST changes: +ACET1TAB25 PO; +AMLO-257 PO; +HYDR12.54 PO; -POTA15TA6 PO; -VIT1CAPS47 PO
[2021-08-18] MEDS ORDERED: ORPHENADRINE CITRATE 30 MG/ML ML IV ONE (22:00)
[2021-08-18 22:18] LABS: BASOPHILS % (AUTO) 0.6 % (0.0-5.0); EOSINOPHILS % (AUTO) 0.6 % (0.0-8.0); LYMPHOCYTES % (AUTO) 38.4 % (21.0-51.0); MEAN CORPUSCULAR HEMOGLOBIN 28.4 pg (27.0-33.0); MONOCYTES % (AUTO) 7.5 % (3.0-13.0); NEUTROPHILS % (AUTO) 52.2 % (40.0-77.0); PLATELET COUNT (AUTO) 294 K/uL (130-400); RED CELL DISTRIBUTION WIDTH 13.2 % (11.0-15.5); WHITE BLOOD COUNT (AUTO) 13.9 K/uL (4.8-10.8)
[2021-08-18 22:28] LABS: POTASSIUM 3.4 mmol/L (3.5-5.1)
[2021-08-18 22:33] LABS: ALBUMIN 3.7 g/dL (3.5-5.0); BILIRUBIN,TOTAL 0.4 mg/dL (0.2-1.0); TOTAL PROTEIN, SERUM 7.2 g/dL (6.0-8.3)
[2021-08-18] MEDS ORDERED: MORPHINE 2 MG SYG IVP ONE (23:30)
[2021-08-18] MEDS ORDERED: ONDANSETRON 4MG INJ IVP ONE (23:30)
[2021-08-18] MEDS ORDERED: HYDROCODONE/ACETAMINOPHEN 5/325 MG TAB PO ONE (23:30)
[2021-08-18] MEDS ORDERED: ACET1TAB25 PO (23:35)
[2021-08-18] MEDS ORDERED: ORPH-43 PO (23:35)
[2021-08-18] MEDS ORDERED: LIDOP TP (23:35)
[2021-08-19 00:02] VITALS: BP 120/57
== END 2021-08-19 00:15 | disposition home or self-care (01) ==
LOC: EDH 21:36
DX: S29.011A Strain of muscle and tendon of front wall of thorax, initial encounter (principal); S29.012A Strain of muscle and tendon of back wall of thorax, initial encounter; M62.838 Other muscle spasm; I11.9 Hypertensive heart disease without heart failure; I48.91 Unspecified atrial fibrillation; Z79.899 Other long term (current) drug therapy; Z87.19 Personal history of other diseases of the digestive system; W18.09XA Striking against other object with subsequent fall, initial encounter; Y93.89 Activity, other specified; Y92.89 Other specified places as the place of occurrence of the external cause; Y99.8 Other external cause status
CPT/HCPCS: 36415; 70450; 71250; 74176; 80053; 83690; 84484; 85025; 93005; 96374; 96375; 99285; J2360 ×2; J2405

== ENCOUNTER → 2022-10-28 | Outpatient (CLI) | payer MEDICARE ==
[~2022-10-28] MED LIST changes: +ACET-2079 PO; -ACET1TAB25 PO; -AMLO-257 PO; +FURO80TA3 PO; -HYDR12.54 PO; +LEVO112C4 PO; -LEVO125 PO; +METO-391 PO; -METO50TA18 PO; +OLME20TA22 PO
== END | disposition home or self-care (01) ==
LOC: RAH 12:21
PROVIDERS: ATTEND Internal Medicine
DX: M19.012 Primary osteoarthritis, left shoulder (principal); M25.512 Pain in left shoulder
CPT/HCPCS: 73221

== ENCOUNTER → 2022-12-02 | Outpatient (CLI) | payer OTHER | END | disposition home or self-care (01) | LOC: RAH 13:08 | PROVIDERS: ATTEND Internal Medicine Cardiovascular Disease | DX: Z13.6 Encounter for screening for cardiovascular disorders (principal); R93.1 Abnormal findings on diagnostic imaging of heart and coronary circulation | CPT/HCPCS: 75571 ==

== ENCOUNTER → 2022-12-16 | Outpatient (CLI) | payer MEDICARE | END | disposition home or self-care (01) | LOC: SHCH 10:53 | PROVIDERS: ATTEND Internal Medicine Cardiovascular Disease | DX: I08.3 Combined rheumatic disorders of mitral, aortic and tricuspid valves (principal); I27.20 Pulmonary hypertension, unspecified; I48.0 Paroxysmal atrial fibrillation | CPT/HCPCS: 93306 ==

== ENCOUNTER → 2023-02-22 | Outpatient (CLI) | payer MEDICARE ==
[~2023-02-22] MED LIST changes: -ACET-2079 PO; +ACET-2247 PO; -FURO80TA3 PO; +METO-408 PO; -OLME20TA22 PO; -RIVA20TA PO
[2023-02-22 14:23] LABS: BASOPHILS % (AUTO) 0.7 % (0.0-5.0); CREATININE 1.1 mg/dL (0.5-1.5); EOSINOPHILS % (AUTO) 2.6 % (0.0-8.0); HEMATOCRIT 36.6 % (36-48); LYMPHOCYTES % (AUTO) 31.3 % (21.0-51.0); MEAN CORPUSCULAR HEMOGLOBIN 25.1 pg (27.0-33.0); MEAN CORPUSCULAR HGB CONC 30.1 g/dL (32.0-36.0); MEAN CORPUSCULAR VOLUME 83.4 fL (79-99); MONOCYTES % (AUTO) 10.7 % (3.0-13.0); NEUTROPHILS % (AUTO) 54.3 % (40.0-77.0); PLATELET COUNT (AUTO) 332 K/uL (130-400); POTASSIUM 4.2 mmol/L (3.5-5.1); RED BLOOD CELL COUNT(AUTO) 4.39 MIL/uL (4.00-5.50); RED CELL DISTRIBUTION WIDTH 15.9 % (11.0-15.5); WHITE BLOOD COUNT (AUTO) 9.6 K/uL (4.8-10.8)
== END | disposition home or self-care (01) ==
LOC: LAB 10:23
PROVIDERS: ATTEND Internal Medicine Cardiovascular Disease
DX: I10 Essential (primary) hypertension (principal)
CPT/HCPCS: 36415; 80048; 85025

== ENCOUNTER → 2023-03-16 | Outpatient (CLI) | payer MEDICARE ==
[2023-03-16 12:46] LABS: CREATININE 1.1 mg/dL (0.5-1.5); POTASSIUM 3.6 mmol/L (3.5-5.1)
== END | disposition home or self-care (01) ==
LOC: LAB 11:06
PROVIDERS: ATTEND Internal Medicine Cardiovascular Disease
DX: R06.09 Other forms of dyspnea (principal)
CPT/HCPCS: 36415; 80048

== ENCOUNTER → 2023-04-18 | Outpatient (CLI) | payer MEDICARE ==
[2023-04-18 12:42] LABS: CREATININE 1.2 mg/dL (0.5-1.5); POTASSIUM 3.9 mmol/L (3.5-5.1)
== END | disposition home or self-care (01) ==
LOC: LAB 11:23
PROVIDERS: ATTEND Internal Medicine Cardiovascular Disease
DX: I10 Essential (primary) hypertension (principal)
CPT/HCPCS: 36415; 80048